=== PATIENT | female | born 1995 | race Caucasian/White ===

== ENCOUNTER 2022-01-06 09:13 | Emergency (ER) | payer SELFPAY ==
[2022-01-06] MEDS ORDERED: Sodium Chloride 0.9% 1,000 ML IV ONE (09:46)
[2022-01-06] MEDS ORDERED: Ondansetron 4 MG/2 ML SDV IVPUSH ONE (09:46)
[2022-01-06] MEDS ORDERED: Sodium Chloride 0.9% 10 ML Syringe FLUSH PRN (09:46)
[2022-01-06] MEDS ORDERED: Sodium Chloride 0.9% 2.5 ML Syringe FLUSH PRN (09:46)
[2022-01-06] MEDS ORDERED: Famotidine 20 MG/2 ML SDV IVPUSH ONE (09:47)
[2022-01-06] MEDS ORDERED: Alum Hydro/Mag Hydro/Simeth XS 15 ML, Lidocaine 2% 5 ML PO ONE ×2 (09:48)
[2022-01-06] MEDS ORDERED: chlordiazePOXIDE 25 MG Cap PO ONE (09:49)
[2022-01-06 10:17] LABS: CARBON DIOXIDE,CO2 25.2 mmol/L (21.0-32.0); POTASSIUM,K 3.7 mmol/L (3.5-5.1)
== END 2022-01-06 11:11 | disposition home or self-care (01) ==
LOC: MW.ED 09:13
DX: K92.2 Gastrointestinal hemorrhage, unspecified (principal); F10.239 Alcohol dependence with withdrawal, unspecified
CPT/HCPCS: 36415; 80053; 81003; 81025; 83690; 84703; 85025; 85610; 96361; 96374; 96375; 99284; A9270; J2405; J3490; J7030

== ENCOUNTER 2022-01-06 22:35 | Emergency (ER) | payer SELFPAY ==
[2022-01-06] MEDS ORDERED: Sodium Chloride 0.9% 2.5 ML Syringe FLUSH PRN (23:26)
[2022-01-06] MEDS ORDERED: Morphine 4 MG/ML Syringe IVPUSH ONE (23:26)
[2022-01-06] MEDS ORDERED: Lactated Ringers 1,000 ML IV ONE (23:26)
[2022-01-06] MEDS ORDERED: Ondansetron 4 MG/2 ML SDV IVPUSH ONE (23:26)
[2022-01-06] MEDS ORDERED: Sodium Chloride 0.9% 10 ML Syringe FLUSH PRN (23:26)
[2022-01-07 00:10] LABS: CARBON DIOXIDE,CO2 24.1 mmol/L (21.0-32.0)
== END 2022-01-07 02:12 | disposition home or self-care (01) ==
LOC: MW.ED 22:35
DX: F10.139 Alcohol abuse with withdrawal, unspecified (principal); Y90.8 Blood alcohol level of 240 mg/100 ml or more
CPT/HCPCS: 36415; 74018; 80053; 80307; 82550; 83735; 84703; 85025; 96361; 96374; 96375; 99285; J2270; J2405; J3490; J7120